=== PATIENT | female | born 2000 | race Caucasian/White ===

== ENCOUNTER 2021-08-30 18:04 | Inpatient (IN) | payer OTHER ==
[~2021-08-30] VITALS: Ht 165.1 cm; Wt 53.3 kg
[2021-08-30 18:44] LABS: BASOPHIL 0.6 % (0-2); EOSINOPHIL 0.8 % (0-5); HCT 42.4 % (37.0-47.0); HGB 14.5 g/dl (12.5-16.0); LYMPHOCYTE 28.1 % (15-48); MCH 28.3 pg (25.0-31.0); MCHC 34.2 g/dL (32.0-36.0); MCV 82.8 fL (78.0-100.0); MONOCYTE 10.1 % (0-12); MPV 11.8 fL (6.0-9.5); NEUTROPHIL 60.2 % (41-80); NRBC 0; PLT 206 K/uL (150-400); RBC 5.12 M/uL (4.20-5.40); RDW 13.3 % (11.5-14.0); WBC 4.8 K/uL (4.0-10.5)
[2021-08-30 19:09] LABS: ALBUMIN 4.3 g/dL (3.4-5.0); BILIRUBIN - TOTAL 0.3 mg/dL (0.2-1.0); BUN/CREAT RATIO (CALC) 7.8 RATIO; CREATININE 0.77 mg/dL (0.51-0.95); MAGNESIUM 2.1 mg/dL (1.8-2.4); POTASSIUM 3.5 mmol/L (3.5-5.1); TOTAL PROTEIN 8.3 g/dL (6.4-8.2)
[2021-08-30 20:02] LABS: BILIRUBIN NEGATIVE (NEGATIVE); BLOOD 2+ Ery/uL (NEGATIVE); CLARITY CLEAR (CLEAR); COLOR YELLOW (YELLOW); GLUCOSE (U) NORMAL (NORMAL); LEUKOCYTES 1+ Leu/uL (NEGATIVE); NITRITE NEGATIVE (NEGATIVE); PROTEIN NEGATIVE (NEGATIVE); UROBILINOGEN 0.2 mg/dL (0.2-1.0)
[2021-08-30 20:09] LABS: BACTERIA 1+; SQUAMOUS EPITHELIAL CELLS RARE
[2021-08-30] MEDS ORDERED: ROCALTROL 0.0.25 MCG PO (23:57)
[2021-08-30] MEDS ORDERED: CALCIUM 500 +1 EAC1 PO (23:59)
[2021-08-31] MEDS ORDERED: TUMS200 MG PO
[2021-08-31] MEDS ORDERED: MICROGESTIN 211 EAC1 PO (00:01)
[2021-08-31] MEDS ORDERED: XYZAL5 MG PO (00:02)
[2021-08-31 00:43] LABS: BUN/CREAT RATIO (CALC) 6.7 RATIO; CREATININE 0.75 mg/dL (0.51-0.95); POTASSIUM 3.6 mmol/L (3.5-5.1)
[2021-08-31 06:37] LABS: BASOPHIL 0.9 % (0-2); EOSINOPHIL 0.9 % (0-5); HCT 37.1 % (37.0-47.0); HGB 12.6 g/dl (12.5-16.0); LYMPHOCYTE 31.3 % (15-48); MCH 28.4 pg (25.0-31.0); MCV 83.7 fL (78.0-100.0); MONOCYTE 10.7 % (0-12); NRBC 0; PLT 179 K/uL (150-400); RBC 4.43 M/uL (4.20-5.40); RDW 13.3 % (11.5-14.0); WBC 4.3 K/uL (4.0-10.5)
[2021-08-31 06:50] LABS: ALBUMIN 3.5 g/dL (3.4-5.0); BILIRUBIN - TOTAL 0.5 mg/dL (0.2-1.0); BUN/CREAT RATIO (CALC) 4.9 RATIO; CREATININE 0.81 mg/dL (0.51-0.95); GLOBULIN (CALCULATION) 3.5 g/dL; PHOSPHORUS 8.6 mg/dL (2.6-4.7); POTASSIUM 3.8 mmol/L (3.5-5.1)
--- NOTE | 2021-08-31 16:22 | NUR ---
PT. STATED THAT SHE DOES NOT HAVE ANY DISCHARGE NEEDS. SHE IS EMPLOYED AT THE [employer] AND SHE RESIDES WITH HER PARENTS.
[2021-09-01 06:22] LABS: HCT 37.7 % (37.0-47.0); HGB 12.7 g/dl (12.5-16.0); MCH 28.3 pg (25.0-31.0); MCHC 33.7 g/dL (32.0-36.0); MCV 84.2 fL (78.0-100.0); MPV 11.9 fL (6.0-9.5); RBC 4.48 M/uL (4.20-5.40); RDW 13.4 % (11.5-14.0); WBC 3.6 K/uL (4.0-10.5)
[2021-09-01 06:59] LABS: BUN/CREAT RATIO (CALC) 3.8 RATIO; CREATININE 0.79 mg/dL (0.51-0.95); POTASSIUM 3.8 mmol/L (3.5-5.1)
[2021-09-01 12:10] LABS: CALCIUM, SERUM 6.2 mg/dL (8.7-10.2); PTH, INTACT 6 pg/mL (15-65)
[2021-09-01 12:39] LABS: MAGNESIUM 1.6 mg/dL (1.8-2.4)
[2021-09-02 06:36] LABS: BASOPHIL 0.7 % (0-2); EOSINOPHIL 1.4 % (0-5); HCT 40.2 % (37.0-47.0); HGB 13.7 g/dl (12.5-16.0); LYMPHOCYTE 27.2 % (15-48); MCH 28.5 pg (25.0-31.0); MCHC 34.1 g/dL (32.0-36.0); MCV 83.6 fL (78.0-100.0); MONOCYTE 9.1 % (0-12); MPV 12.1 fL (6.0-9.5); NEUTROPHIL 61.6 % (41-80); NRBC 0; PLT 172 K/uL (150-400); RBC 4.81 M/uL (4.20-5.40); RDW 13.6 % (11.5-14.0); WBC 4.2 K/uL (4.0-10.5)
[2021-09-02 07:26] LABS: BUN/CREAT RATIO (CALC) 6.2 RATIO; CREATININE 0.8 mg/dL (0.51-0.95); MAGNESIUM 1.5 mg/dL (1.8-2.4); PHOSPHORUS 7.3 mg/dL (2.6-4.7); POTASSIUM 3.7 mmol/L (3.5-5.1); VITAMIN D (25-OH) 45.8 ng/mL (30.0-100.0)
[2021-09-02 22:09] LABS: ALBUMIN 4.8 g/dL (3.4-5.0); BILIRUBIN - TOTAL 0.5 mg/dL (0.2-1.0); BUN/CREAT RATIO (CALC) 7.1 RATIO; CREATININE 0.84 mg/dL (0.51-0.95); GLOBULIN (CALCULATION) 4.2 g/dL; POTASSIUM 3.8 mmol/L (3.5-5.1)
[2021-09-03 04:36] LABS: BUN/CREAT RATIO (CALC) 7.2 RATIO; CREATININE 0.83 mg/dL (0.51-0.95); POTASSIUM 3.4 mmol/L (3.5-5.1)
[2021-09-03 04:44] LABS: MAGNESIUM 2.6 mg/dL (1.8-2.4)
[2021-09-03] MEDS ORDERED: CALCIUM ANTACI200 MG PO (09:02)
[2021-09-03] MEDS ORDERED: OYSCO 500+D TA1 EACH PO (09:02)
[2021-09-03] MEDS ORDERED: CALCITRIOL0.25 MCG PO (09:02)
[2021-09-03] MEDS ORDERED: MIRALAX17 GM PO (09:02)
[2021-09-03] MEDS ORDERED: VITAMIN D325 MC1 PO (09:02)
[2021-09-03] MEDS ORDERED: MAG-OXIDE 400M400 MG PO (09:04)
[2021-09-03] MEDS ORDERED: HCTZ12.5 MG PO (09:06)
--- NOTE | 2021-09-03 09:15 | NUR ---
[address] DURAN INCREASED HEART RATE 90-144 NO COMPLAINTS OF CHEST PAINS OR SHORTNESS OF AIR THE ONLY COMPLIANT IS THAT "I FEEL IT BEATING HARD IN MY CHEST." NEW ORDERS FOR A STAT EKG AND TO MONITOR FOR CHANGES.
[2021-09-03 11:14] LABS: PRO-BNP 86 pg/mL (<125)
[2021-09-03 11:27] LABS: C-REACTIVE PROTEIN <0.20 mg/dL (<=0.90)
[2021-09-03] MEDS ORDERED: TOPROL XL 25MG25 MG PO (11:35)
[2021-09-03] MEDS ORDERED: CLONAZEPAM0.5 MG PO (11:35)
== END 2021-09-03 13:30 | disposition home or self-care (01) | DRG 645 ==
LOC: FER 18:04 → FMS 22:17
PROVIDERS: Allergy & Immunology Allergy; Emergency Medicine; Hospitalist; Internal Medicine; Nurse Practitioner; ADMIT Internal Medicine
DX: E20.8 Other hypoparathyroidism (principal); Z20.822 Contact with and (suspected) exposure to COVID-19; F41.1 Generalized anxiety disorder; Z98.890 Other specified postprocedural states; Z88.0 Allergy status to penicillin; Z82.49 Family history of ischemic heart disease and other diseases of the circulatory system
CPT/HCPCS: 36415; 71275; 80048; 80053; 81001; 82306; 82310; 82330; 82340; 83036; 83735; 83880; 83970; 84100; 84105; 84439; 84443; 84484; 85025; 85379; 86140; 87088; 93005; 94010; 94760; J0610; J2405; J2550; J3475; J7030; Q9967; U0002